=== PATIENT | female | born 1980 | race Caucasian/White ===

== ENCOUNTER 2016-08-04 12:48 | Emergency (ER) | payer OTHER ==
[2016-08-04 14:47] VITALS: BP 106/76
--- NOTE | 2016-08-04 15:24 | UC ---
Respiratory Complaint HPI - History of Current Complaint Chief Complaint: UCGeneralIllness Stated Complaint: SINUS COMPLAINT Time Seen by Provider: 08/04/16 15:16 Hx Obtained From: Patient Hx Last Menstrual Period: 05/2016 ?: No Onset/Duration: Gradual Onset - started last week with sinus congestion, body aches and fever 100-101. now has R sided facial pressure and upper teeth pain. has thick dark yellow nasal drainage (mostly on R). also has ringing in L ear, no pain Severity Initially: Mild Severity Currently: Moderate Aggravating Factors: Nothing Alleviating Factors: Nothing Associated Signs And Symptoms: Positive: Fever, Chills, Nasal Congestion, Sinus Discomfort. Negative: Dizziness, Calf Pain - Allergies/Home Medications Allergies/Adverse Reactions: Allergies Allergy/AdvReac Type Severity Reaction Status Date / Time enviromental Allergy Eyes Uncoded 06/01/14 09:22 Itchy/Swollen/Red/Watery Home Medications: Home Medications Multiple Vitamins W/ Minerals [Multivitamin Adults] 08/04/16 [History] PMH/Surg Hx/FS Hx/Imm Hx Previously Healthy: Yes - breast feeding 4 mo daughter Endocrine History Of: Reports: Thyroid Disease - elevated thyroid antibody. dr. downs Cardiovascular History Of: Reports: Cardiac Disorders - borderline low platelets Denies: Hypertension Respiratory History Of: Denies: Asthma Psychological History Of: Reports: Anxiety - panic attacks - Surgical History Surgical History: None - Family History Known Family History: Positive: None - Social History Occupation: Employed Full-time Lives: With Family Alcohol Use: None Substance Use Type: None Smoking Status (MU): Never Smoked Tobacco - Immunization History Most Recent Influenza Vaccination: 02/29/2016 Most Recent Tetanus Shot: 2016 Most Recent Pneumonia Vaccination: never Review of Systems Constitutional: Fever, Fatigue Skin: Negative ENT: Ear Ache, Nasal Discharge Respiratory: Negative Cardiovascular: Negative Neurological: Negative Psychological: Negative All Other Systems Reviewed And Are Negative: Yes Physical Exam Triage Information Reviewed: Yes Appearance: Well-Appearing, No Pain Distress, Well-Nourished Vital Signs: Initial Vital Signs Temp 99.7 F 08/04/16 14:40 Pulse 116 08/04/16 14:40 Resp 18 08/04/16 14:40 BP 106/76 08/04/16 14:40 Pulse Ox 96 08/04/16 14:40 Vital Signs Reviewed: Yes Eyes: Positive: Conjunctiva Clear ENT: Positive: Pharynx normal, Nasal congestion, TMs normal, Other: - R sided facial pain with percussion Dental Exam: Normal Neck exam: Normal Neck: Positive: No Lymphadenopathy Respiratory Exam: Normal Respiratory: Positive: Lungs clear Cardiovascular Exam: Normal Cardiovascular: Positive: RRR Musculoskeletal Exam: Normal Neurological Exam: Normal Psychological Exam: Normal Skin Exam: Normal Skin: Negative: rashes UC Diagnostic Evaluation - Laboratory O2 Sat by Pulse Oximetry: 96 Respiratory Course/Dx - Differential Dx/Diagnosis Differential Diagnosis/HQI/PQRI: Influenza, Sinusitis, Other - URI. OM Provider Diagnoses: sinusitis Discharge - Discharge Plan Condition: Stable Disposition: HOME
== END 2016-08-04 15:36 | disposition home or self-care (01) ==
LOC: UCEAST 12:48
DX: J32.9 Chronic sinusitis, unspecified (principal); E07.9 Disorder of thyroid, unspecified
CPT/HCPCS: 99212; G0463

== ENCOUNTER 2018-05-08 17:30 | Emergency (ER) | payer OTHER ==
[2018-05-08 17:56] VITALS: BP 99/71
--- NOTE | 2018-05-09 20:24 | UC ---
Laceration HPI - HPI Summary HPI Summary: Pt. is a 37 y.o female who presents to the for lacerations to her right arm and hand that occurred just prior to arrival. Pt. states she was at a cat cafe leaning on a glass table when the table broke and cute her right hand and arm. Tetanus immunization up to date per pt. No past medical hx. Sxs are mild in severity. Touching affected area makes sxs worse. Rest makes sxs better. - History Of Current Complaint Chief Complaint: UCLaceration Stated Complaint: HAND LACERATION Time Seen by Provider: 05/08/18 17:47 Hx Obtained From: Patient Hx Last Menstrual Period: 2 weeks ago Pain Intensity: 0 Pain Scale Used: 0-10 Numeric - Allergies/Home Medications Allergies/Adverse Reactions: Allergies Allergy/AdvReac Type Severity Reaction Status Date / Time enviromental Allergy Eyes Uncoded 05/08/18 18:19 Itchy/Swollen/Red/Watery PMH/Surg Hx/FS Hx/Imm Hx Previously Healthy: Yes - Surgical History Surgical History: None - Family History Known Family History: Positive: None, Non-Contributory - Social History Occupation: Employed Full-time Lives: With Family Alcohol Use: Weekly Substance Use Type: None Smoking Status (MU): Never Smoked Tobacco - Immunization History Most Recent Influenza Vaccination: 02/29/2016 Most Recent Tetanus Shot: 2016 Most Recent Pneumonia Vaccination: never Review of Systems All Other Systems Reviewed And Are Negative: Yes Neurovascular: Positive: Negative Musculoskeletal: Positive: Other: - Lacerations to right hand and arm Is Patient Immunocompromised?: No Physical Exam Triage Information Reviewed: Yes Appearance: Well-Appearing - Pt. sitting on exam table in NAD. Vital Signs: Initial Vital Signs Temp 98.7 F 05/08/18 17:47 Pulse 79 05/08/18 17:47 Resp 18 05/08/18 17:47 BP 99/71 05/08/18 17:47 Pulse Ox 99 05/08/18 17:47 Vital Signs Reviewed: Yes Eyes: Positive: Conjunctiva Clear Neck: Positive: Supple Musculoskeletal Exam: Normal Musculoskeletal: Positive: Strength Intact, ROM Intact, Other: - Noted to the right dorsal hand there is a 2cm long linear deep skin flap. no active bleeding. Full ROM of digits. Noted to the mid dorsal arm there is a superficial abrasion. No bony tenderness. Neurological Exam: Normal Neurological: Positive: Alert Psychological Exam: Normal Skin: Positive: Other - laceration and abrasion as noted above Laceration Repair - Laceration Repair 1 Description: Linear Laceration Size After Repair: Length (cm) - 2cm Contamination/FB Removal: No FB noted. Wound cleaned with hibiclens Modified For Repair: No Cleansing Completed Via Routine Prep: Yes Irrigation With Pressure Irrigation Device: No Closure Material: SteriStrips Closure Method: Single Layer Suture Of: Skin Laceration Course/Dx - Course/Dx Course Of Treatment: Pt. presenting with minor laceration and abrasion after being cut by glass. Hand wound repaired as noted above. Pt .to keep wound clean and dry. To wash with warm soap and water. To return to for redness, swelling or drainage from wound. Pt. understands and agrees with plan. - Differential Dx - Laceration/Wound Differental Diagnoses: Abrasion, Laceration - Diagnosis Provider Diagnosis: Abrasion, Laceration Discharge - Sign-Out/Discharge Documenting (check all that apply): Patient Departure All imaging exams completed and their final reports reviewed: No Studies - Discharge Plan Condition: Good Disposition: HOME Patient Education Materials: Laceration (ED), Steristrips (ED) Referrals: Shreya Piedra MD [Primary Care Provider] - Additional Instructions: Keep wounds clean and dry Can clean gently with warm soap and water Return to for redness, swelling, or drainage from wound - Billing Disposition and Condition Condition: GOOD Disposition: Home
== END 2018-05-08 18:25 | disposition home or self-care (01) ==
LOC: UCEAST 17:30
DX: S61.411A Laceration without foreign body of right hand, initial encounter (principal); S50.811A Abrasion of right forearm, initial encounter; W25.XXXA Contact with sharp glass, initial encounter; Y92.511 Restaurant or cafe as the place of occurrence of the external cause
CPT/HCPCS: 99211; G0463